=== PATIENT | male | born 1955 | race Caucasian/White ===

== ENCOUNTER 2018-04-12 10:30 | Emergency (ER) | payer MEDICARE, MEDICAID ==
[~2018-04-12] VITALS: Ht 167.6 cm; Wt 73.9 kg
[~2018-04-12 10:30] MED LIST: CEFD300C37 PO; CETI10TA18 PO; DIPH25CA61 PO; METH5TAB2 PO; OXYC-302 PO; SIMV40TA3 PO; TAMS0.4C2 PO; ZOLP10TA PO
[2018-04-12 10:50] VITALS: BP 139/78
== END 2018-04-12 11:41 ==
LOC: ED 11:25
DX: R21 Rash and other nonspecific skin eruption (principal); M43.6 Torticollis; I25.2 Old myocardial infarction; E78.5 Hyperlipidemia, unspecified
CPT/HCPCS: 99283

== ENCOUNTER 2018-08-24 08:42 | Emergency (ER) | payer MEDICARE, MEDICAID ==
[~2018-08-24] VITALS: Ht 170.2 cm; Wt 77.8 kg
[2018-08-24 08:49] VITALS: BP 116/58
--- NOTE | 2018-08-24 09:16 | NUR ---
PT C/O PERSISTENT STRONG NON-PROD COUGH, GEN BODY ACHES, RANDOLPH SINCE SATURDAY. PT VERBALIZES "MY STOMACH FEELS LIKE I'VE BEEN DOING 1999 SITUPS" YI GAY AT BEDSIDE, PT ASSESSMENT REV. AND ORDERS REC'D.
[2018-08-24 09:30] LABS: BASOPHILS # (AUTO) 0.01 x10^3/uL (0-0.1); BASOPHILS % (AUTO) 0 % (0-1); EOSINOPHILS # (AUTO) 0.02 x10^3/uL (0-0.4); EOSINOPHILS % (AUTO) 0 % (1-7); LYMPHOCYTES # (AUTO) 0.67 x10^3/uL (1-3.4); LYMPHOCYTES % (AUTO) 7 % (22-44); MD NO; MEAN CORPUSCULAR HEMOGLOBIN 29.6 pg (27.5-34.5); MEAN CORPUSCULAR HGB CONC 32.8 g/dL (33.2-36.2); MEAN CORPUSCULAR VOLUME 90.4 fL (81-97); MEAN PLATELET VOLUME 8.6 fL (7.4-10.4); MONOCYTES # (AUTO) 0.96 x10^3/uL (0.2-0.8); MONOCYTES % (AUTO) 10 % (2-9); NEUTROPHILS # (AUTO) 8.05 x10^3/uL (1.8-6.8); NEUTROPHILS % (AUTO) 83 % (42-75); PLATELET COUNT 292 x10^3/uL (130-400); RED CELL DISTRIBUTION WIDTH 14.1 % (9.4-14.8)
[2018-08-24 09:45] LABS: RAPID INFLUENZA A POSITIVE (Negative)
[2018-08-24 09:46] LABS: RAPID INFLUENZA B Negative (Negative)
[2018-08-24 09:47] LABS: ALBUMIN 3.7 g/dL (3.4-5.0); ANION GAP 8 mmol/L (5-15); CALCIUM 8.8 mg/dL (8.5-10.1); CHLORIDE 102 mmol/L (98-107); CREATININE 1.08 mg/dL (0.7-1.3)
== END 2018-08-24 10:33 | disposition home or self-care (01) ==
LOC: ED 09:55
DX: J10.1 Influenza due to other identified influenza virus with other respiratory manifestations (principal)
CPT/HCPCS: 36415; 71046; 80048; 82040; 85025; 87400; 93005; 99284